=== PATIENT | male | born 1940 | race Caucasian/White ===

== ENCOUNTER 2020-04-26 11:37 | Outpatient (RCR) | payer MEDICARE, SELFPAY ==
[2020-04-26] MEDS: COVID-19 VACC, MRNA(PFIZER)/PF 30 MCG/0.3 ML SYRINGE IM (07:20)
[2020-05-17] MEDS: COVID-19 VACC, MRNA(PFIZER)/PF 30 MCG/0.3 ML SYRINGE IM (06:58)
== END 2020-07-26 23:59 ==
LOC: IMMUN 11:37
PROVIDERS: PCP Family Medicine; Visit Provider Family Medicine
DX: Z23 Encounter for immunization (principal)
CPT/HCPCS: 0001A; 0002A; 91300

== ENCOUNTER → 2024-12-30 | Outpatient (CLI) | payer MEDICARE, SELFPAY ==
[2024-12-30 17:44] LABS: AST(SGOT) 17 U/L (<=37); Alanine Aminotransfer ALT/SGPT 16 U/L (<=46); Albumin, Serum 4.7 g/dL (3.4-4.8); Alkaline Phosphatase 78 U/L (40-129); Anion Gap 11 (5-15); BUN 13 mg/dL (4-19); BUN/Creat Ratio 21.0 RATIO (10-20); Calcium,Total 9.7 mg/dL (7.6-11.0); Carbon Dioxide 26.9 mmol/L (21.0-32.0); Chloride 99 mmol/L (98-108); Cholesterol 139 mg/dL (<=200); Globulin 3.2 g/dL (2.2-4.2); Glucose 152 mg/dL (70-99); Hepatitis C Antibody Nonreactive (Nonreactive); Low Density Lipoprotein Calc. 62 mg/dL; Potassium 4.5 mmol/L (3.3-5.1); Triglycerides 112 mg/dL; Very Low Density Lipoprotein 22 mg/dL (5-40); Vitamin D,25 Hydroxy 40.2 ng/mL (30-100); cholesterol:hdl ratio screen 2.45
[2024-12-30 18:13] LABS: Hematocrit 39.5 % (40-54); Hemoglobin 13.7 g/dL (13.0-16.5); Immature Granulocytes Count 0.010 X10^3/uL (0.0-0.0); Mean Corp Hgb Conc 34.7 g/dL (32-36); Mean Corpuscular Volume 92.5 fL (80-94); Mean Platelet Vol. 9.5 fl (6.2-12.0); NRBC Flagged by Analyzer 0 % (0-5); Platelet Count 325 K/mm3 (150-450); RBC Distribution Width CV 12.3 % (11.6-14.6); RBC Distribution Width SD 42.1 fl (35.1-43.9); Red Blood Count 4.27 M/mm3 (4.6-6.2); White Blood Count 7.2 K/mm3 (4.4-11.0)
[2024-12-30 18:51] LABS: Creatinine, Urine (random) 84.40 mg/dL (39.00-259.00); Microalbumin,Random Urine 30.9 mg/L (<20 mg/L)
[2024-12-30 23:50] LABS: Xtra Tube Kwok EXTRA TUBE
== END | disposition home or self-care (01) ==
LOC: LAB 15:48
PROVIDERS: PCP Family Medicine Geriatric Medicine; Referring Provider Family Medicine Geriatric Medicine; Visit Provider Family Medicine Geriatric Medicine
DX: E11.65 Type 2 diabetes mellitus with hyperglycemia (principal); I10 Essential (primary) hypertension; E78.5 Hyperlipidemia, unspecified; E55.9 Vitamin D deficiency, unspecified
CPT/HCPCS: 36415; 80053; 80061; 82043; 82306; 82570; 83036; 84443; 85025; 86803

== ENCOUNTER → 2025-01-11 | Outpatient (CLI) | payer MEDICARE, SELFPAY ==
--- NOTE | 2025-01-11 07:58 | AAAS_ITS ---
Reason For Study Reason For Study: AAA Screening Aorta Measurements Aorta Doppler Measurements Proximal aorta measures2.20 x 2.10cm. in cross-sectional Peak systolic flow velocities within the proximal aorta axis. measure 83.2 cm/sec. Proximal aorta measures1.93cm. in longitudinal axis. Peak systolic flow velocities within the mid aorta measure Mid aorta measures1.72 x 1.75cm. in cross-sectional axis. 96.4 cm/sec. Mid aorta measures1.75cm. in longitudinal axis. Peak systolic flow velocities within the distal aorta Distal aorta measures1.67 x 1.75cm. in cross-sectional axis.measure 116.1 cm/sec. Distal aorta measures1.68cm. in longitudinal axis. Left Iliac Artery Left iliac artery measures 1.07 x 1.06 cm. in the cross-sectional axis. Left iliac artery measures 1.18 cm. in the longitudinal axis. Peak systolic velocity in the left iliac artery measures 111.2 cm/sec. Right Iliac Artery Right iliac artery measures 1.27 x 1.26 cm. in the cross-sectional axis. Right iliac artery measures 1.32 cm. in the longitudinal axis. Peak systolic velocity in the right iliac artery measures 116.4 cm/sec. Procedure Aorta IVC Iliac vasculature or bypass grafts [id number]. The exam was diagnostic. Exam performed in department. VL/AAA Screening Interpretation Summary The dimensions of the intra-abdominal aorta are normal, without evidence of ane urysmal dilatation. The iliac arteries also appear normal in caliber bilaterally. The intra-abdominal aorta and iliac arteries appear patent, demonstrating normal, pulsatile arterial flow and normal peak systolic velocities. Ordering Physician: Sukumar Hatch Chi Referring Physician: Sukumar Hatch Chi Performed By: Last Florentino RVT and Student
== END | disposition home or self-care (01) ==
LOC: CVS 07:57
PROVIDERS: PCP Family Medicine Geriatric Medicine; Referring Provider Family Medicine Geriatric Medicine; Visit Provider Family Medicine Geriatric Medicine
DX: I71.40 Abdominal aortic aneurysm, without rupture, unspecified (principal)
CPT/HCPCS: 76706